=== PATIENT | female | born 1990 | race Caucasian/White ===

== ENCOUNTER 2017-11-30 21:15 | Emergency (ER) | payer OTHER ==
[2017-12-01] MEDS ORDERED: IBUPROFEN 600 MG TAB (00:19)
[2017-12-01] MEDS: IBUPROFEN 600 MG TAB PO (00:42)
== END 2017-12-01 01:56 | disposition home or self-care (01) ==
LOC: FTE 21:15
DX: S93.402A Sprain of unspecified ligament of left ankle, initial encounter (principal); W18.39XA Other fall on same level, initial encounter; Y92.9 Unspecified place or not applicable
CPT/HCPCS: 73610; 99283-25